=== PATIENT | female | born 1935 | race African-American/Black ===

== ENCOUNTER 2021-12-30 09:41 | Outpatient (CLI) | payer MEDICARE, SELFPAY | END 2021-12-30 09:42 | disposition home or self-care (01) | LOC: ANHAUDIO 09:42 | PROVIDERS: PCP Internal Medicine; Visit Provider Otolaryngology | DX: H90.3 Sensorineural hearing loss, bilateral (principal) | CPT/HCPCS: 92557; 92567 ==

== ENCOUNTER 2025-02-14 13:36 | Outpatient (CLI) | payer MEDICARE, SELFPAY | END 2025-02-14 13:37 | disposition home or self-care (01) | LOC: ANHAUDIO 13:37 | PROVIDERS: PCP Internal Medicine; Visit Provider Family Medicine | DX: H90.3 Sensorineural hearing loss, bilateral (principal) | CPT/HCPCS: 92557; 92567 ==